=== PATIENT | male | born 1980 | race Two or more races ===

== ENCOUNTER 2021-12-22 13:45 | Emergency (ER) | payer SELFPAY ==
[~2021-12-22] VITALS: Ht 170.2 cm; Wt 135.2 kg
--- NOTE | 2021-12-22 14:50 | NUR ---
PT STABLE AT THIS TIME, NOT IN ACUTE DISTRESS. DENIES SI/HI NOR VISUAL/AUDITORY HALLUCINATION.
--- NOTE | 2021-12-22 15:37 | NUR ---
Patient discharged to home/homeless in stable condition. Written and verbal after care instructions given but refused to sign by pt. Homeless waiver and resources also refused.
[2021-12-22 15:39] VITALS: BP 130/83
== END 2021-12-22 15:40 | disposition home or self-care (01) ==
LOC: ER 13:54
DX: Z53.21 Procedure and treatment not carried out due to patient leaving prior to being seen by health care provider (principal); T41.291A Poisoning by other general anesthetics, accidental (unintentional), initial encounter; Y92.89 Other specified places as the place of occurrence of the external cause